=== PATIENT | male | born 1965 | race Caucasian/White ===

== ENCOUNTER 2016-12-03 00:51 | Observation (INO) | payer SELFPAY ==
[2016-12-03] VITALS (9 sets, daily range): BP systolic 112–166; BP diastolic 79–95; PULSE 65–100; RESP 16–20; TEMP 98–98.4; O2SAT 97–100
[2016-12-03] MEDS ORDERED: ASPIRIN 81 MG CHEW TAB CHEW ONE (01:15)
[2016-12-03] MEDS ORDERED: SODIUM CHLORIDE 0.9% FLUSH 10 ML FLUSH IVF PRN (01:15)
[2016-12-03 01:30] LABS: AUTOMATED NEUTROPHIL # 6.9 TH/MM3 (1.8-7.7); BASOPHIL # 0.1 TH/MM3 (0-0.2); BASOPHIL % 0.7 % (0.0-2.0); EOSINOPHIL # 0.2 TH/MM3 (0-0.4); EOSINOPHIL % 1.8 % (0.0-4.0); HEMATOCRIT 46.2 % (39.0-51.0); HEMO FLAGS DIFF FINAL; LYMPH % 20.2 % (9.0-44.0); MEAN CELL VOLUME 89.5 FL (80.0-100.0); MEAN CORPUSCULAR HEMOGLOBIN 31.6 PG (27.0-34.0); MEAN CORPUSCULAR HGB CONC 35.3 % (32.0-36.0); MONO % 7.3 % (0.0-8.0); PLATELET COUNT 220 TH/MM3 (150-450); RED BLOOD COUNT 5.16 MIL/MM3 (4.50-5.90); RED CELL DISTRIBUTION WIDTH 12.4 % (11.6-17.2); WHITE BLOOD COUNT 9.9 TH/MM3 (4.0-11.0)
[2016-12-03 01:48] LABS: ALT (GPT) 39 U/L (12-78); ANION GAP 9 MEQ/L (5-15); AST (GOT) 22 U/L (15-37); BICARBONATE 23.6 MEQ/L (21.0-32.0); BLOOD UREA NITROGEN 18 MG/DL (7-18); CHLORIDE 111 MEQ/L (98-107); GLOMERULAR FILTRATION RATE 67 ML/MIN (>89); SODIUM (NA) 144 MEQ/L (136-145)
[2016-12-03 01:52] LABS: ALKALINE PHOSPHATASE 45 U/L (45-117); CREATINE KINASE 243 U/L (39-308); TOTAL BILIRUBIN ADULT 0.6 MG/DL (0.2-1.0)
[2016-12-03 01:54] LABS: APTT (PATIENT) 24.6 SEC (24.3-30.1); PROTHROMBIN TIME - PATIENT 10.5 SEC (9.8-11.6)
--- NOTE | 2016-12-03 01:56 | RADRPT ---
EXAM DATE/TIME: 12/03/2016 01:13 [place] COMPARISON: No previous studies available for comparison. INDICATIONS : Short of breath. MEDICAL HISTORY : None. SURGICAL HISTORY : None. ENCOUNTER: Initial ACUITY: 1 day PAIN SCORE: 5/10 LOCATION: Bilateral chest FINDINGS: A single view of the chest demonstrates the lungs to be hypoinflated with minimal atelectatic changes of the left hemidiaphragm. No confluent infiltrate or effusion. Heart size is normal. Osseous struct ures are intact. CONCLUSION: Hypoinflation with minimal left basilar atelectatic changes. No confluent infiltrate. Gilbert Larios MD on December 03, 2016 at 1:53 Board Certified Radiologist. This report was verified electronically.
[2016-12-03 02:05] LABS: CKMB 2.6 NG/ML (0.5-3.6)
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
[2016-12-03] MEDS ORDERED: SODIUM CHLORIDE 0.9% FLUSH 10 ML FLUSH IV FLUSH PRN (03:00)
[2016-12-03 05:01] LABS: CREATINE KINASE 179 U/L (39-308)
[2016-12-03 05:13] LABS: CKMB 2.1 NG/ML (0.5-3.6)
[2016-12-03 08:09] LABS: CREATINE KINASE 243 U/L (39-308)
[2016-12-03 08:22] LABS: CKMB 2.7 NG/ML (0.5-3.6)
[2016-12-03] MEDS ORDERED: SODIUM CHLORIDE 0.9% FLUSH 10 ML FLUSH IV FLUSH SCH (09:00)
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
--- NOTE | 2016-12-03 10:25 | HHI.DCPOC ---
Discharge Care Plan Diagnosis: (1) Chest pain Goals to Promote Your Health * To prevent worsening of your condition and complications * To maintain your health at the optimal level Directions to Meet Your Goals Take your medications as prescribed Follow your dietary instruction Follow activity as directed Keep your appointments as scheduled Take your immunizations and boosters as scheduled If your symptoms worsen call your PCP, if no PCP go to Urgent Care Center or Emergency Room Smoking is Dangerous to Your Health. Avoid second hand smoke Call the 24-hour hour crisis hotline for domestic abuse at Humph[facility] Ham Dec 03, 2016 10:25
--- NOTE | 2016-12-03 11:23 | TR ---
Date Performed: 12/03/2016 Time Performed: 09:33:35 DOCTOR: Chintan Moura DRUG LIST: CLINICAL HISTORY: REASON FOR TEST: Chest pain REASON FOR ENDING: OBSERVATION: CONCLUSION: NORBERT PROTOCOL. NO CP. TEST STOPPED AFTER EXCEEDING GOAL HR SECONDARY TO SOB AND LEG FATIGUE.Maximum RL=440 % Max HR Achieved=90.0% Maximum DD=022/80 Total Exercise Time=7:33 COMMENTS: Conclusion: Normal treadmill exercise. No evidence of ischemia.
--- NOTE | 2016-12-03 14:15 | EKG ---
Date Performed: 12/03/2016 Time Performed: 07:26:48 PTAGE: 51 years EKG: Sinus rhythm INCOMPLETE RIGHT BUNDLE BRANCH BLOCK NONSPECIFIC T-WAVE ABNORMALITY BORDERLINE ECG PREVIOUS TRACING : 12/03/2016 04.32 Since previous tracing, no significant change noted DOCTOR: Chintan Moura Interpretating Date/Time 12/03/2016 14:15:03
--- NOTE | 2016-12-03 14:16 | EKG ---
Date Performed: 12/03/2016 Time Performed: 04:32:17 PTAGE: 51 years EKG: Sinus rhythm INCOMPLETE RIGHT BUNDLE BRANCH BLOCK BORDERLINE ECG PREVIOUS TRACING : 12/03/2016 01.12 Since previous tracing, no significant change noted DOCTOR: Chintan Moura Interpretating Date/Time 12/03/2016 14:15:45
--- NOTE | 2016-12-03 14:22 | EKG ---
Date Performed: 12/03/2016 Time Performed: 01:12:48 PTAGE: 51 years EKG: Sinus rhythm BORDERLINE LEFT AXIS DEVIATION POSSIBLE RIGHT VENTRICULAR CONDUCTION DELAY BORDERLINE ECG NO PREVIOUS TRACING DOCTOR: Chintan Moura Interpretating Date/Time 12/03/2016 14:20:52
== END 2016-12-03 12:36 | disposition home or self-care (01) ==
LOC: NEPC 00:51 → NEDA 02:50 → NEPFCDU 04:11
DX: R07.9 Chest pain, unspecified (principal); R06.02 Shortness of breath; R94.31 Abnormal electrocardiogram [ECG] [EKG]
CPT/HCPCS: 71010; 80053; 82550; 82552; 84484; 85025; 85610; 85730; 93005; 93017; 99285; G0378